=== PATIENT | female | born 1995 | race Caucasian/White ===

== ENCOUNTER → 2017-03-09 | Outpatient (CLI) | payer OTHER ==
[~2017-03-09] MED LIST: AMOXICILLIN500 M2 PO; AMOXIL250 MG/5 M PO; BACTRIM DS 8001 TA1 PO; BENADRYL25 MG PO; CLARITIN10 MG PO; CLARITIN5 MG/5 ML PO; DEPO PROVER150 MG/M1 IM; HYDROCODONE BIT1 T11 PO; LEVSIN0.125 MG PO; MACROBID100 M1 PO; MEDROL DOSEPAK4 MG PO; MOTRIN600 MG PO; NORPLANT; PEPCID20 MG PO; PRELONE5 MG/5 ML PO; PYRIDIUM200 M1 PO; TRIMOX,POL250 MG/5 M PO; ZYRTEC10 MG PO; Zofran4 MG PO
[2017-03-10 06:12] LABS: PROGESTERONE 004317 <0.1 ng/mL (.)
== END | disposition home or self-care (01) ==
LOC: LAB 12:51
PROVIDERS: Obstetrics & Gynecology
DX: Z31.69 Encounter for other general counseling and advice on procreation (principal)

== ENCOUNTER → 2017-04-21 | Outpatient (CLI) | payer OTHER ==
[2017-04-22 08:12] LABS: PROGESTERONE 004317 0.3 ng/mL (.)
== END | disposition home or self-care (01) ==
LOC: LAB 15:49
PROVIDERS: Obstetrics & Gynecology
DX: Z31.69 Encounter for other general counseling and advice on procreation (principal)

== ENCOUNTER → 2017-05-17 | Outpatient (CLI) | payer OTHER | END | disposition home or self-care (01) | LOC: LAB 16:18 | DX: Z31.69 Encounter for other general counseling and advice on procreation (principal) ==

== ENCOUNTER → 2017-10-08 | Outpatient (CLI) | payer OTHER ==
[2017-10-08 17:42] LABS: BASO # 0.1 10*3/uL (0.0-0.1); BASO % 0.8 % (0.0-1.0); EOS # 0.3 10*3/uL (0.0-0.4); EOS % 2.6 % (1.0-4.0); HEMATOCRIT 37.1 % (37.0-47.0); HEMOGLOBIN 12.2 g/dl (12.0-16.0); LYMPH # 2.5 10*3/uL (1.3-4.4); LYMPH % 25.6 % (27.0-41.0); MEAN CELL VOLUME 90.7 fl (81.0-99.0); MEAN CORPUSCULAR HGB 29.8 pg (27.0-31.0); MEAN CORPUSCULAR HGB CONC 32.9 g/dl (33.0-37.0); MEAN PLATELET VOLUME 10.4 fl (9.6-12.3); MONO # 0.7 10*3/uL (0.1-1.0); MONO % 7.3 % (3.0-9.0); NEUT # 6.1 10*3/uL (2.3-7.9); NEUT % 63.4 % (47.0-73.0); PLATELET COUNT AUTOMATED 314 10*3/uL (130-400); RED BLOOD COUNT 4.09 10*6/uL (4.10-5.10); RED CELL DISTRI WIDTH 12.9 % (0-14.5); WHITE BLOOD COUNT 9.7 10*3/uL (4.8-10.8)
== END | disposition home or self-care (01) ==
LOC: LAB 16:57
PROVIDERS: Specialist
DX: J35.01 Chronic tonsillitis (principal); R79.1 Abnormal coagulation profile

== ENCOUNTER 2017-11-17 09:59 | Emergency (ER) | payer OTHER ==
[~2017-11-17] VITALS: Ht 152.4 cm; Wt 88.9 kg
[2017-11-17 10:19] VITALS: BP 135/95
[2017-11-17] MEDS ORDERED: Motrin,Rufen800 MG PO (11:41)
== END 2017-11-17 12:06 | disposition home or self-care (01) ==
LOC: ED 09:59
DX: S93.492A Sprain of other ligament of left ankle, initial encounter (principal); Z88.2 Allergy status to sulfonamides; Z79.899 Other long term (current) drug therapy; X37.1XXA Tornado, initial encounter; Y93.01 Activity, walking, marching and hiking; Y92.89 Other specified places as the place of occurrence of the external cause; Y99.8 Other external cause status

== ENCOUNTER → 2018-12-02 | Outpatient (CLI) | payer OTHER ==
[~2018-12-02] MED LIST changes: +Motrin,Rufen800 MG PO; +PRENATA CHEWAB1 EACH PO; +Synthroid,Levo25 MCG PO
== END | disposition home or self-care (01) ==
LOC: LAB 11:15
DX: R11.0 Nausea (principal)

== ENCOUNTER → 2019-10-13 | Outpatient (CLI) | payer OTHER ==
[2019-10-13 09:25] LABS: HEMATOCRIT 40.3 % (37.0-47.0); HEMOGLOBIN 13.3 g/dl (12.0-16.0); MEAN CELL VOLUME 90.6 fl (81.0-99.0); MEAN CORPUSCULAR HGB 29.9 pg (27.0-31.0); MEAN PLATELET VOLUME 10.6 fl (9.6-12.3); RED BLOOD COUNT 4.45 10*6/uL (4.10-5.10); RED CELL DISTRI WIDTH 12.7 % (0-14.5)
[2019-10-13 09:51] LABS: ALBUMIN 3.8 gm/dl (3.1-4.5); ALKALINE PHOSPHATASE 184 U/L (45-117); BUN 12 mg/dl (7-24); CHLORIDE 107 mmol/L (98-107); CREATININE 0.65 mg/dL (0.55-1.02); FREE T4 0.86 ng/dl (0.76-1.46); POTASSIUM 3.8 mmol/L (3.5-5.1); SGOT/AST 19 IU/L (3-35); SGPT/ALT 31 U/L (12-78); SODIUM 141 mmol/L (136-145); TOTAL PROTEIN 8.1 gm/dL (6.4-8.2)
[2019-10-13 10:19] LABS: VITAMIN D, 25-HYDROXY 20.1 ng/mL (30-100)
== END | disposition home or self-care (01) ==
LOC: LAB 08:58
PROVIDERS: Family Medicine
DX: E03.9 Hypothyroidism, unspecified (principal); E74.00 Glycogen storage disease, unspecified; F41.1 Generalized anxiety disorder; D64.9 Anemia, unspecified; R55 Syncope and collapse; E55.9 Vitamin D deficiency, unspecified; R53.83 Other fatigue

== ENCOUNTER → 2019-11-27 | Outpatient (CLI) | payer OTHER ==
[2019-11-27 11:21] LABS: HEMATOCRIT 40.1 % (37.0-47.0); HEMOGLOBIN 13.1 g/dl (12.0-16.0); MEAN CELL VOLUME 88.7 fl (81.0-99.0); MEAN CORPUSCULAR HGB CONC 32.7 g/dl (33.0-37.0); MEAN PLATELET VOLUME 11.2 fl (9.6-12.3); RED BLOOD COUNT 4.52 10*6/uL (4.10-5.10); RED CELL DISTRI WIDTH 12.3 % (0-14.5); WHITE BLOOD COUNT 7.2 10*3/uL (4.8-10.8)
[2019-11-27 11:42] LABS: FREE T4 0.91 ng/dl (0.76-1.46)
[2019-11-27 11:48] LABS: THYROID STIM HORMONE (HS) 2.42 uIU/ml (0.358-4.75)
[2019-11-28 06:04] LABS: LUTEINIZING HORMONE 004283 5.5 mIU/mL (.)
[2019-11-28 19:04] LABS: TESTOSTERONE FREE, (DIRECT) 1.5 pg/mL (0.0-4.2)
== END | disposition home or self-care (01) ==
LOC: LAB 10:23
PROVIDERS: Nurse Practitioner Family
DX: N92.6 Irregular menstruation, unspecified (principal); R53.83 Other fatigue

== ENCOUNTER → 2020-07-26 | Outpatient (CLI) | payer OTHER | END | disposition home or self-care (01) | LOC: US 14:20 | PROVIDERS: ATTEND Nurse Practitioner Women's Health | DX: Z34.91 Encounter for supervision of normal pregnancy, unspecified, first trimester (principal); Z3A.09 9 weeks gestation of pregnancy ==

== ENCOUNTER 2020-09-11 13:06 | Emergency (ER) | payer OTHER ==
[~2020-09-11] VITALS: Wt 93.4 kg
[2020-09-11 13:16] VITALS: BP 147/70
[2020-09-11 13:41] LABS: BILIRUBIN Negative (Negative); BLOOD Negative (Negative); CLARITY Cloudy (Clear); COLOR Dark Yellow (Yellow); GLUCOSE Negative (Negative); KETONE 4+ (Negative); LEUKO ESTERASE 1+ (Negative); NITRITE Negative (Negative); SPECIFIC GRAVITY >= 1.030 (1.001-1.030)
[2020-09-11 13:59] LABS: BASO % 0.1 % (0.0-1.0); EOS % 0.4 % (1.0-4.0); HEMATOCRIT 37.8 % (37.0-47.0); LYMPH # 0.5 10*3/uL (1.3-4.4); LYMPH % 6.4 % (27.0-41.0); MEAN CELL VOLUME 89.2 fl (81.0-99.0); MEAN CORPUSCULAR HGB CONC 32.5 g/dl (33.0-37.0); MONO # 0.3 10*3/uL (0.1-1.0); MONO % 3.7 % (3.0-9.0); NEUT # 7.2 10*3/uL (2.3-7.9); NEUT % 89.2 % (47.0-73.0); PLATELET COUNT AUTOMATED 220 10*3/uL (130-400); RED BLOOD COUNT 4.24 10*6/uL (4.10-5.10); RED CELL DISTRI WIDTH 14.2 % (0-14.5); WHITE BLOOD COUNT 8.1 10*3/uL (4.8-10.8)
[2020-09-11 14:04] LABS: BACTERIA 2+; EPITHELIAL CELLS 16-20; MUCOUS 3+
[2020-09-11 14:14] LABS: ALBUMIN 3.1 gm/dl (3.1-4.5); ALKALINE PHOSPHATASE 130 U/L (45-117); BUN 4 mg/dl (7-24); CHLORIDE 110 mmol/L (98-107); CREATININE 0.41 mg/dL (0.55-1.02); POTASSIUM 3.2 mmol/L (3.5-5.1); SGOT/AST 11 IU/L (3-35); SGPT/ALT 13 U/L (12-78); SODIUM 140 mmol/L (136-145); TOTAL PROTEIN 7.5 gm/dL (6.4-8.2)
[2020-09-11] MEDS ORDERED: AMOXICILLIN500 M2 PO (14:32)
[2020-09-11] MEDS ORDERED: PHENERGAN25 M3 PO (14:32)
== END 2020-09-11 14:36 | disposition home or self-care (01) ==
LOC: ED 13:06
PROVIDERS: Emergency Medicine
DX: N39.0 Urinary tract infection, site not specified (principal); R11.2 Nausea with vomiting, unspecified; Z88.2 Allergy status to sulfonamides; Z88.8 Allergy status to other drugs, medicaments and biological substances; Z79.899 Other long term (current) drug therapy

== ENCOUNTER → 2020-11-06 | Outpatient (CLI) | payer OTHER ==
[~2020-11-06] MED LIST changes: +PHENERGAN25 M3 PO
== END | disposition home or self-care (01) ==
LOC: US 10-15 11:30
PROVIDERS: ATTEND Nurse Practitioner Women's Health
DX: N63.10 Unspecified lump in the right breast, unspecified quadrant (principal); N64.59 Other signs and symptoms in breast

== ENCOUNTER 2020-11-24 22:16 | Emergency (ER) | payer OTHER ==
[2020-11-24 22:23] VITALS: BP 108/58
== END 2020-11-24 23:44 | disposition home or self-care (01) ==
LOC: ED 22:16
DX: O9A.212 Injury, poisoning and certain other consequences of external causes complicating pregnancy, second trimester (principal); S80.01XA Contusion of right knee, initial encounter; S00.83XA Contusion of other part of head, initial encounter; O99.612 Diseases of the digestive system complicating pregnancy, second trimester; K21.9 Gastro-esophageal reflux disease without esophagitis; Z3A.27 27 weeks gestation of pregnancy; Z88.2 Allergy status to sulfonamides; Z79.2 Long term (current) use of antibiotics; Z79.899 Other long term (current) drug therapy; Z90.89 Acquired absence of other organs; V89.2XXA Person injured in unspecified motor-vehicle accident, traffic, initial encounter; Y93.89 Activity, other specified; Y92.488 Other paved roadways as the place of occurrence of the external cause; Y99.8 Other external cause status

== ENCOUNTER 2021-06-02 18:20 | Emergency (ER) | payer OTHER ==
[~2021-06-02] VITALS: Ht 152.4 cm; Wt 88.5 kg
[2021-06-02 18:27] VITALS: BP 127/55
[2021-06-02 18:44] LABS: BILIRUBIN 1+ (Negative); BLOOD 3+ (Negative); CLARITY Turbid (Clear); COLOR Red (Yellow); GLUCOSE Negative (Negative); KETONE Negative (Negative); LEUKO ESTERASE 3+ (Negative); NITRITE Negative (Negative); PH 5.5 (4.5-8.0); SPECIFIC GRAVITY 1.025 (1.001-1.030); UROBILINOGEN 0.2 E.U./dl (0.0-1.0)
[2021-06-02 18:48] LABS: BASO # 0.1 10*3/uL (0.0-0.1); BASO % 0.7 % (0.0-1.0); EOS # 0.3 10*3/uL (0.0-0.4); EOS % 2.4 % (1.0-4.0); HEMATOCRIT 37.9 % (37.0-47.0); LYMPH # 1.8 10*3/uL (1.3-4.4); LYMPH % 16.7 % (27.0-41.0); MEAN CELL VOLUME 82.9 fl (81.0-99.0); MEAN CORPUSCULAR HGB 25.4 pg (27.0-31.0); MEAN CORPUSCULAR HGB CONC 30.6 g/dl (33.0-37.0); MEAN PLATELET VOLUME 10.8 fl (9.6-12.3); MONO # 0.6 10*3/uL (0.1-1.0); NEUT # 7.8 10*3/uL (2.3-7.9); NEUT % 73.9 % (47.0-73.0); PLATELET COUNT AUTOMATED 341 10*3/uL (130-400); RED BLOOD COUNT 4.57 10*6/uL (4.10-5.10); RED CELL DISTRI WIDTH 14.6 % (0-14.5); WHITE BLOOD COUNT 10.5 10*3/uL (4.8-10.8)
[2021-06-02 18:57] LABS: RBC TNTC rbc/hpf (0-2)
[2021-06-02 19:03] LABS: ALBUMIN 3.8 gm/dl (3.1-4.5); ALKALINE PHOSPHATASE 163 U/L (45-117); BUN 15 mg/dl (7-24); CHLORIDE 110 mmol/L (98-107); LIPASE 123 U/L (73-393); POTASSIUM 3.6 mmol/L (3.5-5.1); SGOT/AST 12 IU/L (3-35); SGPT/ALT 24 U/L (12-78); SODIUM 137 mmol/L (136-145); TOTAL PROTEIN 7.8 gm/dL (6.4-8.2)
[2021-06-02] MEDS ORDERED: CEFUROXIME AXE500 MG PO (19:51)
== END 2021-06-02 19:53 | disposition home or self-care (01) ==
LOC: ED 18:20
PROVIDERS: Physician Assistant
DX: N94.6 Dysmenorrhea, unspecified (principal); N39.0 Urinary tract infection, site not specified; Z88.2 Allergy status to sulfonamides; Z79.2 Long term (current) use of antibiotics; Z79.899 Other long term (current) drug therapy; Z90.89 Acquired absence of other organs

== ENCOUNTER → 2021-08-07 | Outpatient (CLI) | payer OTHER ==
[~2021-08-07] MED LIST changes: +CEFUROXIME AXE500 MG PO; +HEARTBURN PREVE10 MG PO; +KENALOG 0.025%15 GM T
== END | disposition home or self-care (01) ==
LOC: COVID19 16:10
PROVIDERS: ATTEND Internal Medicine
DX: U07.1 COVID-19 (principal)

== ENCOUNTER 2021-08-15 21:21 | Emergency (ER) | payer OTHER ==
[~2021-08-15] VITALS: Wt 88.5 kg
[~2021-08-15 21:21] MED LIST changes: -HEARTBURN PREVE10 MG PO; -KENALOG 0.025%15 GM T
[2021-08-15 21:31] VITALS: BP 133/89
[2021-08-16] MEDS ORDERED: HEARTBURN PREVE10 MG PO (01:29)
[2021-08-16] MEDS ORDERED: KENALOG 0.025%15 GM T (11:12)
== END 2021-08-16 02:08 | disposition home or self-care (01) ==
LOC: ED 21:21
DX: L50.9 Urticaria, unspecified (principal); Z88.1 Allergy status to other antibiotic agents; Z79.899 Other long term (current) drug therapy

== ENCOUNTER 2021-08-16 10:49 | Emergency (ER) | payer OTHER ==
[~2021-08-16] VITALS: Ht 152.4 cm; Wt 88.5 kg
[~2021-08-16 10:49] MED LIST changes: +HEARTBURN PREVE10 MG PO
[2021-08-16 10:59] VITALS: BP 117/72
[2021-08-16] MEDS ORDERED: KENALOG 0.025%15 GM T (11:12)
== END 2021-08-16 11:25 | disposition home or self-care (01) ==
LOC: ED 10:49
DX: L50.9 Urticaria, unspecified (principal); Z88.1 Allergy status to other antibiotic agents; Z79.899 Other long term (current) drug therapy

== ENCOUNTER → 2021-09-24 | Outpatient (CLI) | payer OTHER ==
[~2021-09-24] MED LIST changes: +KENALOG 0.025%15 GM T
[2021-09-24 09:26] LABS: BASO # 0.1 10*3/uL (0.0-0.1); BASO % 0.7 % (0.0-1.0); EOS # 0.1 10*3/uL (0.0-0.4); EOS % 1.1 % (1.0-4.0); HEMATOCRIT 36.7 % (37.0-47.0); LYMPH # 1.4 10*3/uL (1.3-4.4); LYMPH % 18.1 % (27.0-41.0); MEAN CELL VOLUME 82.1 fl (81.0-99.0); MEAN CORPUSCULAR HGB 24.8 pg (27.0-31.0); MEAN CORPUSCULAR HGB CONC 30.2 g/dl (33.0-37.0); MEAN PLATELET VOLUME 11.5 fl (9.6-12.3); MONO # 0.4 10*3/uL (0.1-1.0); MONO % 5.4 % (3.0-9.0); NEUT # 5.5 10*3/uL (2.3-7.9); NEUT % 74.4 % (47.0-73.0); PLATELET COUNT AUTOMATED 304 10*3/uL (130-400); RED BLOOD COUNT 4.47 10*6/uL (4.10-5.10); RED CELL DISTRI WIDTH 15.6 % (0-14.5); RETICULOCYTE % 1.31 % (0.50-2.50); WHITE BLOOD COUNT 7.4 10*3/uL (4.8-10.8)
[2021-09-24 09:27] LABS: BILIRUBIN Negative (Negative); BLOOD 3+ (Negative); CLARITY Turbid (Clear); COLOR Red (Yellow); GLUCOSE Negative (Negative); KETONE Negative (Negative); LEUKO ESTERASE 2+ (Negative); NITRITE Negative (Negative); PH 6.5 (4.5-8.0)
[2021-09-24 09:47] LABS: ALBUMIN 3.6 gm/dl (3.1-4.5); ALKALINE PHOSPHATASE 144 U/L (45-117); BUN 9 mg/dl (7-24); CHLORIDE 107 mmol/L (98-107); CHOLESTEROL 150 mg/dL (<200); CREATININE 0.57 mg/dL (0.55-1.02); GAMMA GLUTAMYL TRANSPEPTIDASE 8 U/L (5-55); IRON 23 ug/dL (50-170); LDL CHOLESTEROL 87 mg/dL (9-159); POTASSIUM 3.9 mmol/L (3.5-5.1); SGOT/AST 12 IU/L (3-35); SGPT/ALT 20 U/L (12-78); SODIUM 140 mmol/L (136-145); THYROXINE (T4) TOTAL 7.5 ug/dl (4.8-13.9); TOTAL IRON BINDING CAPACITY 511 ug/dl (250-450); TOTAL PROTEIN 7.6 gm/dL (6.4-8.2); TRIGLYCERIDES 76 mg/dl (<150); URIC ACID 3.7 mg/dL (2.6-6.0)
[2021-09-24 09:50] LABS: RBC TNTC rbc/hpf (0-2)
[2021-09-24 09:56] LABS: T3 UPTAKE 31 % (31-39)
[2021-09-24 10:03] LABS: BETA-HCG, QUANT < 1.0 mIU/mL (1-3)
[2021-09-24 10:18] LABS: FERRITIN 3.6 ng/mL (10.0-291.0); VITAMIN D, 25-HYDROXY 11.6 ng/mL (30-100)
[2021-09-25 05:06] LABS: FOLLICLE STIMULATING HORMONE 6.2 mIU/mL (.); LUTEINIZING HORMONE 4.3 mIU/mL (.); PROGESTERONE 0.1 ng/mL (.); PROLACTIN 14.2 ng/mL (4.8-23.3); RHEUMATOID ARTHRITIS FACTOR <10.0 IU/mL (<14.0)
[2021-09-25 15:07] LABS: ANTI-DSDNA ANTIBODIES 10 IU/mL (0-9)
[2021-09-26 06:07] LABS: HUMAN GROWTH HORMONE 0.1 ng/mL (0.0-10.0)
[2021-09-26 19:06] LABS: ESTROGENS, TOTAL 355 pg/mL (.)
== END | disposition home or self-care (01) ==
LOC: LAB 08:35
PROVIDERS: ATTEND Family Medicine
DX: E55.9 Vitamin D deficiency, unspecified (principal); R79.89 Other specified abnormal findings of blood chemistry; R53.83 Other fatigue; R74.8 Abnormal levels of other serum enzymes; E78.5 Hyperlipidemia, unspecified; N94.89 Other specified conditions associated with female genital organs and menstrual cycle

== ENCOUNTER → 2022-01-08 | Outpatient (CLI) | payer OTHER ==
[2022-01-08 09:55] LABS: BASO # 0.1 10*3/uL (0.0-0.1); BASO % 1.1 % (0.0-1.0); EOS # 0.2 10*3/uL (0.0-0.4); EOS % 3.5 % (1.0-4.0); HEMATOCRIT 38.2 % (37.0-47.0); LYMPH # 1.4 10*3/uL (1.3-4.4); LYMPH % 22.9 % (27.0-41.0); MEAN CELL VOLUME 86.2 fl (81.0-99.0); MEAN CORPUSCULAR HGB 27.1 pg (27.0-31.0); MEAN CORPUSCULAR HGB CONC 31.4 g/dl (33.0-37.0); MEAN PLATELET VOLUME 10.9 fl (9.6-12.3); MONO # 0.4 10*3/uL (0.1-1.0); MONO % 5.6 % (3.0-9.0); NEUT # 4.2 10*3/uL (2.3-7.9); NEUT % 66.6 % (47.0-73.0); PLATELET COUNT AUTOMATED 298 10*3/uL (130-400); RED BLOOD COUNT 4.43 10*6/uL (4.10-5.10); RED CELL DISTRI WIDTH 15.3 % (0-14.5); RETICULOCYTE % 1.45 % (0.50-2.50); WHITE BLOOD COUNT 6.3 10*3/uL (4.8-10.8)
[2022-01-08 09:58] LABS: BILIRUBIN Negative (Negative); BLOOD Negative (Negative); CLARITY Cloudy (Clear); COLOR Yellow (Yellow); GLUCOSE Negative (Negative); KETONE Negative (Negative); LEUKO ESTERASE 1+ (Negative); NITRITE Negative (Negative); SPECIFIC GRAVITY 1.025 (1.001-1.030); UROBILINOGEN 0.2 E.U./dl (0.0-1.0)
[2022-01-08 10:14] LABS: BUN 14 mg/dl (7-24); CHLORIDE 110 mmol/L (98-107); CHOLESTEROL 141 mg/dL (<200); GAMMA GLUTAMYL TRANSPEPTIDASE 13 U/L (5-55); POTASSIUM 3.7 mmol/L (3.5-5.1); SGPT/ALT 23 U/L (12-78); SODIUM 139 mmol/L (136-145); TRIGLYCERIDES 71 mg/dl (<150); URIC ACID 3.4 mg/dL (2.6-6.0)
[2022-01-08 10:23] LABS: ALKALINE PHOSPHATASE 138 U/L (45-117); CREATININE 0.57 mg/dL (0.55-1.02); IRON 39 ug/dL (50-170); LDL CHOLESTEROL 77 mg/dL (9-159); SGOT/AST 11 IU/L (3-35); T3 UPTAKE 34 % (31-39); TOTAL IRON BINDING CAPACITY 496 ug/dl (250-450); TOTAL PROTEIN 7.7 gm/dL (6.4-8.2)
[2022-01-08 10:24] LABS: BETA-HCG, QUANT < 1.0 mIU/mL (1-3)
[2022-01-08 10:51] LABS: FERRITIN 8.2 ng/mL (10.0-291.0); VITAMIN D, 25-HYDROXY 10.7 ng/mL (30-100)
[2022-01-08 11:28] LABS: BACTERIA 3+; EPITHELIAL CELLS 21-30
[2022-01-09 05:06] LABS: RHEUMATOID ARTHRITIS FACTOR <10.0 IU/mL (<14.0)
[2022-01-09 13:07] LABS: ANTI-DSDNA ANTIBODIES 14 IU/mL (0-9)
== END | disposition home or self-care (01) ==
LOC: LAB 09:13
PROVIDERS: ATTEND Family Medicine
DX: R06.02 Shortness of breath (principal); R79.89 Other specified abnormal findings of blood chemistry; R53.83 Other fatigue; E78.5 Hyperlipidemia, unspecified; R74.8 Abnormal levels of other serum enzymes; E55.9 Vitamin D deficiency, unspecified

== ENCOUNTER 2022-02-11 19:00 | Emergency (ER) | payer OTHER ==
[~2022-02-11] VITALS: Ht 152.4 cm; Wt 88.5 kg
[2022-02-11 19:23] VITALS: BP 113/61
== END 2022-02-11 20:10 | disposition left against medical advice (07) ==
LOC: ED 19:00
DX: R00.2 Palpitations (principal); Z53.21 Procedure and treatment not carried out due to patient leaving prior to being seen by health care provider

== ENCOUNTER → 2022-03-05 | Outpatient (CLI) | payer OTHER | END | disposition home or self-care (01) | LOC: CARD 10:40 | PROVIDERS: ATTEND Internal Medicine | DX: I35.8 Other nonrheumatic aortic valve disorders (principal) ==

== ENCOUNTER → 2022-09-09 | Outpatient (CLI) | payer OTHER ==
[2022-09-09 11:27] LABS: BASO # 0.1 10*3/uL (0.0-0.1); BASO % 0.9 % (0.0-1.0); BILIRUBIN Negative (Negative); BLOOD 3+ (Negative); CLARITY Cloudy (Clear); COLOR Red (Yellow); EOS # 0.2 10*3/uL (0.0-0.4); EOS % 3.5 % (1.0-4.0); GLUCOSE Negative (Negative); HEMATOCRIT 40.3 % (37.0-47.0); KETONE Negative (Negative); LEUKO ESTERASE 1+ (Negative); LYMPH # 1.4 10*3/uL (1.3-4.4); LYMPH % 23.6 % (27.0-41.0); MEAN CELL VOLUME 89.4 fl (81.0-99.0); MEAN CORPUSCULAR HGB CONC 32.5 g/dl (33.0-37.0); MEAN PLATELET VOLUME 10.9 fl (9.6-12.3); MONO # 0.3 10*3/uL (0.1-1.0); MONO % 5.1 % (3.0-9.0); NEUT # 3.8 10*3/uL (2.3-7.9); NEUT % 66.7 % (47.0-73.0); NITRITE Negative (Negative); PLATELET COUNT AUTOMATED 296 10*3/uL (130-400); RED BLOOD COUNT 4.51 10*6/uL (4.10-5.10); RED CELL DISTRI WIDTH 12.8 % (0-14.5); RETICULOCYTE % 1.68 % (0.50-2.50); SPECIFIC GRAVITY >= 1.030 (1.001-1.030); WHITE BLOOD COUNT 5.7 10*3/uL (4.8-10.8)
[2022-09-09 11:44] LABS: ALKALINE PHOSPHATASE 156 U/L (45-117); BUN 8 mg/dl (7-24); CHLORIDE 109 mmol/L (98-107); CHOLESTEROL 147 mg/dL (<200); CREATININE 0.55 mg/dL (0.55-1.02); GAMMA GLUTAMYL TRANSPEPTIDASE 12 U/L (5-55); IRON 44 ug/dL (50-170); LDL CHOLESTEROL 90 mg/dL (9-159); POTASSIUM 3.8 mmol/L (3.5-5.1); SGOT/AST 17 IU/L (3-35); SGPT/ALT 26 U/L (12-78); SODIUM 143 mmol/L (136-145); T3 UPTAKE 32 % (31-39); THYROXINE (T4) TOTAL 8.9 ug/dl (4.8-13.9); TOTAL PROTEIN 7.7 gm/dL (6.4-8.2); TRIGLYCERIDES 106 mg/dl (<150); URIC ACID 4.4 mg/dL (2.6-6.0)
[2022-09-09 11:50] LABS: B-hCG (QUALITATIVE) NEGATIVE (NEGATIVE)
[2022-09-09 12:07] LABS: BETA-HCG, QUANT < 1.0 mIU/mL (1-3)
[2022-09-09 12:16] LABS: RBC TNTC rbc/hpf (0-2)
[2022-09-09 12:35] LABS: FERRITIN 24.1 ng/mL (10.0-291.0)
[2022-09-10 04:06] LABS: DHEA SULFATE 67.7 ug/dL (84.8-378.0); FOLLICLE STIMULATING HORMONE 8.6 mIU/mL (.); LUTEINIZING HORMONE 3.9 mIU/mL (.); PROGESTERONE 0.1 ng/mL (.); PROLACTIN 8.8 ng/mL (4.8-23.3); SEX HORMONE BINDING GLOBULIN 53.7 nmol/L (24.6-122.0)
[2022-09-10 05:06] LABS: RHEUMATOID FACTOR <10.0 IU/mL (<14.0)
[2022-09-10 14:08] LABS: ANTI-DSDNA ANTIBODIES 18 IU/mL (0-9)
[2022-09-11 07:07] LABS: INSULIN-LIKE GROWTH FACTOR-1 175 ng/mL (101-347)
[2022-09-12 05:06] LABS: TESTOSTERONE FREE, (DIRECT) 0.4 pg/mL (0.0-4.2)
[2022-09-18 13:05] LABS: DEHYDROEPIANDROSTERONE 110 ng/dL (31-701)
== END | disposition home or self-care (01) ==
LOC: LAB 10:52
PROVIDERS: ATTEND Family Medicine
DX: E78.5 Hyperlipidemia, unspecified (principal); E55.9 Vitamin D deficiency, unspecified; R79.89 Other specified abnormal findings of blood chemistry; R53.83 Other fatigue; R74.8 Abnormal levels of other serum enzymes; N94.89 Other specified conditions associated with female genital organs and menstrual cycle

== ENCOUNTER 2023-12-18 20:41 | Emergency (ER) | payer OTHER ==
[~2023-12-18] VITALS: Ht 149.8 cm; Wt 90.7 kg
[2023-12-18 21:08] VITALS: BP 119/67
[2023-12-18] MEDS ORDERED: methylPREDNISolone sod succ 125 MG VIAL IM ONE (21:10)
[2023-12-18] MEDS ORDERED: ALBUTEROL 8 GM INHALER INH ONE (22:55)
== END 2023-12-18 23:00 | disposition home or self-care (01) ==
LOC: ED 20:41
DX: J06.9 Acute upper respiratory infection, unspecified (principal); Z20.822 Contact with and (suspected) exposure to COVID-19; Z88.0 Allergy status to penicillin; Z88.2 Allergy status to sulfonamides; Z79.899 Other long term (current) drug therapy; Z90.89 Acquired absence of other organs

== ENCOUNTER 2024-08-27 10:37 | Emergency (ER) | payer OTHER ==
[~2024-08-27] VITALS: Ht 149.8 cm; Wt 98.6 kg
[2024-08-27 10:45] VITALS: BP 119/69
[2024-08-27] MEDS ORDERED: FAMOTIDINE 20 MG TAB PO ONE (11:05)
[2024-08-27] MEDS ORDERED: methylPREDNISolone sod succ 125 MG VIAL IM ONE (11:05)
[2024-08-27] MEDS ORDERED: diphenhydrAMINE hydrochloride 25 MG CAP PO ONE (11:05)
[2024-08-27] MEDS ORDERED: DEXAMETHASONE6 MG PO (11:44)
== END 2024-08-27 11:54 | disposition home or self-care (01) ==
LOC: ED 10:37
DX: L24.0 Irritant contact dermatitis due to detergents (principal); Z88.0 Allergy status to penicillin; Z88.8 Allergy status to other drugs, medicaments and biological substances; Z88.2 Allergy status to sulfonamides; Z79.899 Other long term (current) drug therapy; Z90.89 Acquired absence of other organs

== ENCOUNTER 2024-11-27 20:58 | Emergency (ER) | payer OTHER ==
[~2024-11-27] VITALS: Ht 121.9 cm; Wt 97.5 kg
[~2024-11-27 20:58] MED LIST changes: +DEXAMETHASONE6 MG PO
[2024-11-27 21:09] VITALS: BP 128/81
[2024-11-27] MEDS ORDERED: Ketorolac Tromethamine 60 MG/2 ML VIAL IM ONE (22:20)
== END 2024-11-27 22:36 | disposition home or self-care (01) ==
LOC: ED 20:58
DX: J10.1 Influenza due to other identified influenza virus with other respiratory manifestations (principal); Z20.822 Contact with and (suspected) exposure to COVID-19; F32.A Depression, unspecified; F41.9 Anxiety disorder, unspecified; E03.9 Hypothyroidism, unspecified; Z88.0 Allergy status to penicillin; Z88.8 Allergy status to other drugs, medicaments and biological substances; Z88.2 Allergy status to sulfonamides; Z90.89 Acquired absence of other organs; Z98.890 Other specified postprocedural states

== ENCOUNTER 2025-07-18 19:32 | Emergency (ER) | payer OTHER ==
[~2025-07-18] VITALS: Ht 149.8 cm; Wt 97.5 kg
[2025-07-18 19:55] VITALS: BP 139/69
[2025-07-18] MEDS ORDERED: LISSAMINE GREEN 1.5 MG STRIP OP ONE (22:15)
[2025-07-18] MEDS ORDERED: Dexamethasone/Tobramycin OPHTHALMIC 2.5 ML BOTTLE OPH ONE (23:20)
== END 2025-07-18 23:36 | disposition home or self-care (01) ==
LOC: ED 19:32
DX: S05.02XA Injury of conjunctiva and corneal abrasion without foreign body, left eye, initial encounter (principal); Z88.0 Allergy status to penicillin; Z88.8 Allergy status to other drugs, medicaments and biological substances; Z88.2 Allergy status to sulfonamides; Z98.890 Other specified postprocedural states; Z90.89 Acquired absence of other organs; W55.03XA Scratched by cat, initial encounter; Y93.89 Activity, other specified; Y92.89 Other specified places as the place of occurrence of the external cause; Y99.8 Other external cause status